=== PATIENT | male | born 1950 | race Caucasian/White ===

== ENCOUNTER → 2019-10-23 | Outpatient (CLI) | payer OTHER | LOC: SJCVC 14:19 | DX: R94.31 Abnormal electrocardiogram [ECG] [EKG] (principal); I71.2 Thoracic aortic aneurysm, without rupture; I49.9 Cardiac arrhythmia, unspecified; I35.1 Nonrheumatic aortic (valve) insufficiency; I10 Essential (primary) hypertension; E78.5 Hyperlipidemia, unspecified; C61 Malignant neoplasm of prostate; N40.0 Benign prostatic hyperplasia without lower urinary tract symptoms; Z79.899 Other long term (current) drug therapy ==

== ENCOUNTER → 2020-04-22 | Outpatient (CLI) | payer OTHER | LOC: SJCVCIMAG 09:01 | PROVIDERS: ATTEND Internal Medicine | DX: I65.23 Occlusion and stenosis of bilateral carotid arteries (principal); I35.1 Nonrheumatic aortic (valve) insufficiency; R00.1 Bradycardia, unspecified; I71.2 Thoracic aortic aneurysm, without rupture; I10 Essential (primary) hypertension; E78.5 Hyperlipidemia, unspecified; C61 Malignant neoplasm of prostate; Z79.899 Other long term (current) drug therapy ==

== ENCOUNTER → 2020-11-18 | Outpatient (CLI) | payer OTHER | LOC: SJCVC 14:35 | PROVIDERS: ATTEND Internal Medicine | DX: R94.31 Abnormal electrocardiogram [ECG] [EKG] (principal); I71.2 Thoracic aortic aneurysm, without rupture; I35.1 Nonrheumatic aortic (valve) insufficiency; I10 Essential (primary) hypertension; E78.5 Hyperlipidemia, unspecified; C61 Malignant neoplasm of prostate; Z98.890 Other specified postprocedural states; Z79.899 Other long term (current) drug therapy; Z82.49 Family history of ischemic heart disease and other diseases of the circulatory system ==

== ENCOUNTER → 2021-05-19 | Outpatient (CLI) | payer OTHER | LOC: SJCVCIMAG 09:48 | PROVIDERS: ATTEND Internal Medicine | DX: R94.31 Abnormal electrocardiogram [ECG] [EKG] (principal); I08.2 Rheumatic disorders of both aortic and tricuspid valves; I71.2 Thoracic aortic aneurysm, without rupture; I35.1 Nonrheumatic aortic (valve) insufficiency; I10 Essential (primary) hypertension; E78.5 Hyperlipidemia, unspecified; C61 Malignant neoplasm of prostate; N40.0 Benign prostatic hyperplasia without lower urinary tract symptoms; Z79.899 Other long term (current) drug therapy; Z72.89 Other problems related to lifestyle ==